=== PATIENT | female | born 2000 | race Two or more races ===

== ENCOUNTER 2025-06-27 14:29 | Emergency (ER) | payer SELFPAY ==
[~2025-06-27] VITALS: Ht 162.6 cm; Wt 61.0 kg
[2025-06-27 14:52] VITALS: O2SAT 99
[2025-06-27] MEDS: IBUPROFEN 400MG TABLET PO ONE (17:19)
[2025-06-27] MEDS ORDERED: IBUP-2028 MT (17:48)
[2025-06-27 17:55] VITALS: BP 100/68; PULSE 90; RESP 16; TEMP 37; O2SAT 99
== END 2025-06-27 17:55 | disposition home or self-care (01) ==
LOC: ER 14:29
DX: S62.609A Fracture of unspecified phalanx of unspecified finger, initial encounter for closed fracture (principal); W01.198A Fall on same level from slipping, tripping and stumbling with subsequent striking against other object, initial encounter; Y93.89 Activity, other specified; Y92.89 Other specified places as the place of occurrence of the external cause; Y99.8 Other external cause status
CPT/HCPCS: 73130; 99283